=== PATIENT | male | born 1950 | race Caucasian/White ===

== ENCOUNTER 2025-03-20 22:29 | Emergency (ER) | payer MEDICARE ==
[~2025-03-20 22:29] MED LIST: ASPIRIN CHILDRE81 MG PO; BAL B-501 EACH PO; PREVACID15 M2 PO
[2025-03-20 23:55] LABS: BASO # 0.1 10*3/uL (0.0-0.1); BASO % 0.7 % (0.0-1.0); EOS # 0.2 10*3/uL (0.0-0.4); EOS % 2.4 % (1.0-4.0); HEMATOCRIT 46.5 % (42.0-52.0); MEAN CELL VOLUME 88.4 fl (80.0-94.0); MEAN CORPUSCULAR HGB 29.3 pg (27.0-31.0); MEAN CORPUSCULAR HGB CONC 33.1 g/dl (33.0-37.0); MEAN PLATELET VOLUME 9.2 fl (9.6-12.3); MONO # 0.7 10*3/uL (0.1-1.0); MONO % 8.7 % (3.0-9.0); NEUT % 59.3 % (47.0-73.0); PLATELET COUNT AUTOMATED 235 10*3/uL (130-400); RED BLOOD COUNT 5.26 10*6/uL (4.50-5.90); RED CELL DISTRI WIDTH 13.7 % (0-14.5); WHITE BLOOD COUNT 8.4 10*3/uL (4.8-10.8)
[2025-03-21] LABS: BUN 13 mg/dl (9-23); CHLORIDE 100 mmol/L (98-107); CPK 73 U/L (34-171); POTASSIUM 3.9 mmol/L (3.4-5.1)
== END 2025-03-21 00:48 | disposition home or self-care (01) ==
LOC: ED 22:29
PROVIDERS: Internal Medicine
DX: B34.9 Viral infection, unspecified (principal); R42 Dizziness and giddiness; Z79.82 Long term (current) use of aspirin; Z79.899 Other long term (current) drug therapy

== ENCOUNTER 2025-08-27 21:42 | Emergency (ER) | payer MEDICARE ==
[~2025-08-27] VITALS: Ht 175.2 cm; Wt 117.9 kg
[2025-08-27 22:28] LABS: BILIRUBIN Negative (Negative); BLOOD Negative (Negative); CLARITY Clear (Clear); COLOR Yellow (Yellow); KETONE Negative (Negative); LEUKO ESTERASE Negative (Negative); NITRITE Negative (Negative); PH 7.0 (4.5-8.0); SPECIFIC GRAVITY <= 1.005 (1.001-1.030); UROBILINOGEN 0.2 E.U./dl (0.0-1.0)
[2025-08-27 22:39] LABS: BASO # 0.1 10*3/uL (0.0-0.1); BASO % 0.7 % (0.0-1.0); EOS # 0.1 10*3/uL (0.0-0.4); EOS % 1.6 % (1.0-4.0); MEAN CELL VOLUME 90.1 fl (80.0-94.0); MEAN CORPUSCULAR HGB 29.5 pg (27.0-31.0); MEAN PLATELET VOLUME 9.3 fl (9.6-12.3); MONO # 0.6 10*3/uL (0.1-1.0); MONO % 6.6 % (3.0-9.0); NEUT # 5.5 10*3/uL (2.3-7.9); NEUT % 63.9 % (47.0-73.0); NUCLEATED RED BLOOD CELL 0.0 % (0.0-0.0); NUCLEATED RED BLOOD CELL 0.0 10*3/uL (0.0-0.0); PLATELET COUNT AUTOMATED 243 10*3/uL (130-400); RED CELL DISTRI WIDTH 13.7 % (0-14.5)
[2025-08-27 22:56] LABS: BUN 13 mg/dl (9-23); SGPT/ALT 23 U/L (5-49)
== END 2025-08-28 00:46 | disposition home or self-care (01) ==
LOC: ED 21:42
PROVIDERS: Nurse Practitioner Family
DX: R53.81 Other malaise (principal); K21.9 Gastro-esophageal reflux disease without esophagitis; I10 Essential (primary) hypertension; E78.5 Hyperlipidemia, unspecified; E11.9 Type 2 diabetes mellitus without complications